=== PATIENT | male | born 1995 | race American Indian/Alaskan Native ===

== ENCOUNTER 2020-10-29 09:09 | Emergency (ER) | payer MEDICAID ==
[2020-10-29] MEDS ORDERED: Sodium Chloride 0.9% 1,000 ML IV ONE ×2 (09:43→12:04)
--- NOTE | 2020-10-29 09:45 | EDM.PDOC ---
ED HPI GENERAL MEDICAL PROBLEM - General Chief Complaint: Lower Extremity Injury/Pain Stated Complaint: INFECTION ON A TOE/ALCOHOL POISONING Time Seen by Provider: 10/29/20 09:45 Source of Information: Reports: Patient History Limitations: Reports: No Limitations - History of Present Illness INITIAL COMMENTS - FREE TEXT/NARRATIVE: 25 yo gentleman who presented to the ER today with concerns for hang over after a heavy bout of ETOH consumption. Reports that he drank heavily on the new night and apparently passed out. Has been feeling sick today. Had 4 episodes of non bilious, non bloody vomiting. No fever. Reports abdominal discomfort but denied any abdominal pain. Presented to the ER for further evaluation. Also complaining Painful swollen right great Toe that has been ongoing for the past few days. He is concerned that its infected. No fever. Denied any Trauma. Rates the pain as 10 Onset: Today Onset Date: 10/29/20 Onset Time: 07:00 Duration: Day(s): (started vomiting today) Associated Symptoms: Reports: Loss of Appetite, Malaise, Nausea/Vomiting, Weakness - Related Data Allergies Allergy/AdvReac Type Severity Reaction Status Date / Time amoxicillin Allergy Cannot Verified 05/10/19 19:03 Remember Home Meds: Home Meds Omeprazole 20 mg PO DAILY 05/10/19 [History] Sulfamethoxazole/Trimethoprim [Bactrim Ds Tablet] 1 each PO BID #14 tablet 10/29/20 [Rx] chlordiazePOXIDE [Librium] 25 mg PO TID PRN #15 cap 10/29/20 [Rx] Past Medical History Respiratory History: Reports: Asthma Gastrointestinal History: Reports: GERD Psychiatric History: Reports: Anxiety, Panic Attack - Past Surgical History Musculoskeletal Surgical History: Reports: ORIF Social & Family History - Family History Family Medical History: No Pertinent Family History - Living Situation & Occupation Occupation: Employed (He states he works part-time at a [employer]) Review of Systems - Review of Systems Review Of Systems: See Below Constitutional: Reports: Weakness Eyes: Reports: No Symptoms Ears: Reports: No Symptoms Nose: Reports: No Symptoms Mouth/Throat: Reports: No Symptoms Respiratory: Reports: No Symptoms Cardiovascular: Reports: No Symptoms GI/Abdominal: Reports: Abdominal Pain, Decreased Appetite, Nausea, Vomiting Genitourinary: Reports: No Symptoms Musculoskeletal: Reports: No Symptoms Skin: Reports: No Symptoms Neurological: Reports: No Symptoms Psychiatric: Reports: No Symptoms ED EXAM, GENERAL - Physical Exam Exam: See Below Exam Limited By: No Limitations General Appearance: Alert, WD/WN, No Apparent Distress Eye Exam: Bilateral Eye: EOMI, PERRL Ears: Normal External Exam, Normal Canal, Hearing Grossly Normal, Normal TMs Ear Exam: Bilateral Ear: Auricle Normal, Canal Normal, TM normal Nose: Normal Inspection, Normal Mucosa, No Blood Throat/Mouth: Normal Inspection, Normal Lips, Normal Teeth Head: Atraumatic, Normocephalic Neck: Normal Inspection, Supple, Non-Tender, Full Range of Motion Respiratory/Chest: No Respiratory Distress, Lungs Clear, Normal Breath Sounds, No Accessory Muscle Use Cardiovascular: Normal Peripheral Pulses, Regular Rate, Rhythm, No Edema, No JVD, No Murmur GI/Abdominal: Normal Bowel Sounds, Soft, Non-Tender, No Organomegaly Back Exam: Normal Inspection, Full Range of Motion Extremities: Normal Inspection, Normal Range of Motion, Non-Tender, No Pedal Edema, Normal Capillary Refill, Redness, Other (Right great Toe -- swollen, tender, erythematous consistent with cellulitis) Neurological: Alert, Oriented, CN II-XII Intact, Normal Cognition, Normal Gait, Normal Reflexes, No Motor/Sensory Deficits Psychiatric: Normal Affect, Normal Mood Skin Exam: Warm, Intact, Normal Color Course - Vital Signs Last Recorded V/S: Last Vital Signs Temp 36.5 C 10/29/20 09:20 Pulse 74 10/29/20 09:20 Resp 16 10/29/20 09:20 BP 113/68 10/29/20 09:20 Pulse Ox 98 10/29/20 09:20 - Orders/Labs/Meds Labs: Laboratory Tests 10/29/20 10/29/20 10/29/20 Range/Units 09:50 09:50 09:50 WBC 6.9 (3.2-10.1) x10-3/uL RBC 4.64 (3.90-5.90) x10(6)uL Hgb 14.0 (12.9-17.7) g/dL Hct 42.7 (38.3-50.1) % MCV 92.2 (80.8-98.7) fL MCH 30.2 (27.0-33.3) pg MCHC 32.7 (28.7-35.3) g/dL RDW 12.9 (12.4-15.0) % Plt Count 275 (117-477) x10(3)uL MPV 8.2 (6.7-11.0) fL Neut % (Auto) 62.2 (40.3-71.8) % Lymph % (Auto) 29.4 (15.8-45.3) % George % (Auto) 7.1 (5.5-15.2) % Eos % (Auto) 1.0 (0.1-6.8) % Baso % (Auto) 0.3 (0.3-3.8) % Neut # (Auto) 4.3 (1.7-6.9) x10-3/uL Lymph # (Auto) 2.0 (0.5-4.5) x10-3/uL George # (Auto) 0.5 (0.0-1.2) x10-3/uL Eos # (Auto) 0.1 (0.0-0.6) x10-3/uL Baso # (Auto) 0.0 (0.0-0.3) x10-3/uL Sodium 140 (135-145) mmol/L Potassium 3.4 L (3.5-5.3) mmol/L Chloride 100 (100-110) mmol/L Carbon Dioxide 26 (21-32) mmol/L BUN 8 (7-18) mg/dL Creatinine 1.0 (0.70-1.30) mg/dL Est Cr Clr Drug Dosing TNP Estimated GFR (MDRD) > 60 (>60) BUN/Creatinine Ratio 8.0 L (9-20) Glucose 101 (80-116) mg/dL Calcium 8.8 (8.6-10.2) mg/dL Magnesium (1.8-2.5) mg/dL Total Bilirubin 0.5 (0.1-1.3) mg/dL AST 53 H (5-25) IU/L ALT 80 H (12-36) U/L Alkaline Phosphatase 93 (56-112) IU/L Total Protein 8.0 (6.0-8.0) g/dL Albumin 4.3 (3.5-5.2) g/dL Globulin 3.7 g/dL Albumin/Globulin Ratio 1.2 Lipase 99 (73-393) U/L Ethyl Alcohol 0.03 (<0.03) % 10/29/20 Range/Units 09:50 WBC (3.2-10.1) x10-3/uL RBC (3.90-5.90) x10(6)uL Hgb (12.9-17.7) g/dL Hct (38.3-50.1) % MCV (80.8-98.7) fL MCH (27.0-33.3) pg MCHC (28.7-35.3) g/dL RDW (12.4-15.0) % Plt Count (117-477) x10(3)uL MPV (6.7-11.0) fL Neut % (Auto) (40.3-71.8) % Lymph % (Auto) (15.8-45.3) % George % (Auto) (5.5-15.2) % Eos % (Auto) (0.1-6.8) % Baso % (Auto) (0.3-3.8) % Neut # (Auto) (1.7-6.9) x10-3/uL Lymph # (Auto) (0.5-4.5) x10-3/uL George # (Auto) (0.0-1.2) x10-3/uL Eos # (Auto) (0.0-0.6) x10-3/uL Baso # (Auto) (0.0-0.3) x10-3/uL Sodium (135-145) mmol/L Potassium (3.5-5.3) mmol/L Chloride (100-110) mmol/L Carbon Dioxide (21-32) mmol/L BUN (7-18) mg/dL Creatinine (0.70-1.30) mg/dL Est Cr Clr Drug Dosing Estimated GFR (MDRD) (>60) BUN/Creatinine Ratio (9-20) Glucose (80-116) mg/dL Calcium (8.6-10.2) mg/dL Magnesium 1.7 L (1.8-2.5) mg/dL Total Bilirubin (0.1-1.3) mg/dL AST (5-25) IU/L ALT (12-36) U/L Alkaline Phosphatase (56-112) IU/L Total Protein (6.0-8.0) g/dL Albumin (3.5-5.2) g/dL Globulin g/dL Albumin/Globulin Ratio Lipase (73-393) U/L Ethyl Alcohol (<0.03) % Meds: Medications Discontinued Medications Generic Name Dose Route Start Last Admin Trade Name Freq PRN Reason Stop Dose Admin Sodium Chloride 1,000 mls @ 1,000 mls/hr 10/29/20 09:43 10/29/20 10:27 Normal Saline IV 10/29/20 10:42 1,000 mls/hr .BOLUS ONE Administration Magnesium Sulfate 2 gm/ 104 mls @ 100 mls/hr 10/29/20 11:06 10/29/20 11:41 Dextrose/Water IV 10/29/20 12:08 Not Given ONETIME ONE Magnesium Sulfate Confirm 10/29/20 11:11 10/29/20 12:12 Magnesium Sulfate In Water Premix Administered 10/29/20 11:12 Not Given Dose 2 gm in 50 mls @ as directed .ROUTE .STK-MED ONE Magnesium Sulfate Confirm 10/29/20 11:28 10/29/20 12:12 Magnesium Sulfate In Water Premix Administered 10/29/20 11:29 Not Given Dose 2 gm in 50 mls @ as directed .ROUTE .STK-MED ONE Magnesium Sulfate 2 gm in 50 mls @ 25 mls/hr 10/29/20 11:37 10/29/20 11:42 Magnesium Sulfate In Water Premix IV 10/29/20 13:36 25 mls/hr ONETIME ONE Administration Sodium Chloride 1,000 mls @ 1,000 mls/hr 10/29/20 12:04 10/29/20 12:12 Normal Saline IV 10/29/20 13:03 1,000 mls/hr .BOLUS ONE Administration Lorazepam 1 mg 10/29/20 10:51 10/29/20 10:57 Ativan IVPUSH 10/29/20 10:52 1 mg ONETIME ONE Administration Lorazepam 1 mg 10/29/20 12:04 10/29/20 12:12 Ativan IVPUSH 10/29/20 12:05 1 mg ONETIME ONE Administration Ondansetron HCl 8 mg 10/29/20 10:42 10/29/20 10:50 Zofran IVPUSH 10/29/20 10:43 8 mg ONETIME ONE Administration Potassium Chloride 40 meq 10/29/20 11:05 10/29/20 11:16 Klor-Con M20 PO 10/29/20 11:06 40 meq ONETIME ONE Administration Departure - Departure Time of Disposition: 13:39 Disposition: Home, Self-Care 01 Condition: Good Clinical Impression: Alcohol withdrawal Qualifiers: Complication of substance-induced condition: uncomplicated Qualified Code(s): F 10.230 - Alcohol dependence with withdrawal, uncomplicated - Discharge Information Prescriptions: Sulfamethoxazole/Trimethoprim [Bactrim Ds Tablet] 1 each PO BID #14 tablet chlordiazePOXIDE [Librium] 25 mg PO TID PRN #15 cap PRN Reason: Anxiety Instructions: Cellulitis, Adult, Alcohol Withdrawal Syndrome, [id number] Referrals: PCP,None [Primary Care Provider] - Forms: ED Department Discharge Additional Instructions: Follow with PCP ETOH cessation Stay hydrated Return if symptoms worsen Call your Physician or Return to Emergency Department if: * Your condition worsens in any way. * You develop fever greater than 100.4. * You have vomitting that does not stop with medications. * You have pain that is not controlled with medications. Sepsis Event Note (ED) - Evaluation Sepsis Screening Result: No Definite Risk - Focused Exam Vital Signs: Vital Signs Temp Pulse Resp BP Pulse Ox 10/29/20 09:20 36.5 C 74 16 113/68 98 - Problem List & Annotations (1) Alcohol withdrawal SNOMED Code(s): 515150183 Code(s): F10.239 - ALCOHOL DEPENDENCE WITH WITHDRAWAL, UNSPECIFIED Status: Acute Current Visit: Yes Qualifiers: Complication of substance-induced condition: uncomplicated Qualified Code(s): F10.230 - Alcohol dependence with withdrawal, uncomplicated - Problem List Review Problem List Initiated/Reviewed/Updated: Yes
[2020-10-29] MEDS ORDERED: Ondansetron 4 MG/2 ML SDV IVPUSH ONE (10:42)
[2020-10-29] MEDS ORDERED: LORazepam 2 MG/ML SDV IVPUSH ONE ×2 (10:51→12:04)
[2020-10-29] MEDS ORDERED: Potassium Chloride 20 MEQ Tab.ER PO ONE (11:05)
[2020-10-29] MEDS ORDERED: Magnesium Sulfate/Water 2 GM/50 ML BAG ONE ×2 (11:11→11:28)
[2020-10-29] MEDS ORDERED: Magnesium Sulfate/Water 2 GM/50 ML BAG IV ONE (11:37)
== END 2020-10-29 13:28 | disposition home or self-care (01) ==
LOC: FB.ED 09:09
DX: F10.230 Alcohol dependence with withdrawal, uncomplicated (principal); K21.9 Gastro-esophageal reflux disease without esophagitis; J45.909 Unspecified asthma, uncomplicated; Z88.0 Allergy status to penicillin; Z79.899 Other long term (current) drug therapy
CPT/HCPCS: 36415; 80053; 80307; 83690; 83735; 85025; 96365; 96366; 96375; 96376; 99284; 99284-25; A9270-GY; J2060; J2405; J3475; J7030

== ENCOUNTER 2022-07-15 15:14 | Emergency (ER) | payer MEDICAID ==
[2022-07-15] MEDS ORDERED: Ondansetron 4 MG Tab.DIS ONE (15:29)
[2022-07-15] MEDS ORDERED: Ondansetron 4 MG Tab.DIS PO ONE (15:31)
[2022-07-15] MEDS ORDERED: Sodium Chloride 0.9% 1,000 ML IV ONE (15:35)
[2022-07-15] MEDS ORDERED: LORazepam 2 MG/ML SDV IVPUSH ONE (15:51)
[2022-07-15 15:54] LABS: ESTIMATED GFR 86 mL/min (>60)
== END 2022-07-15 17:15 | disposition home or self-care (01) ==
LOC: FB.ED 15:14
DX: R11.2 Nausea with vomiting, unspecified (principal); K21.9 Gastro-esophageal reflux disease without esophagitis; F41.9 Anxiety disorder, unspecified; F10.10 Alcohol abuse, uncomplicated; Z88.1 Allergy status to other antibiotic agents; Z79.899 Other long term (current) drug therapy
CPT/HCPCS: 36415; 80053; 83690; 85025; 86140; 96361; 96374; 99284; J2060; J7030; Q0162

== ENCOUNTER 2022-07-30 08:56 | Emergency (ER) | payer SELFPAY | END 2022-07-30 11:22 | disposition home or self-care (01) | LOC: FB.ED 08:56 | DX: S93.401A Sprain of unspecified ligament of right ankle, initial encounter (principal); X50.1XXA Overexertion from prolonged static or awkward postures, initial encounter | CPT/HCPCS: 96372; 99000; 99283 ==

== ENCOUNTER 2022-08-05 21:12 | Emergency (ER) | payer SELFPAY ==
[2022-08-05] MEDS ORDERED: LORazepam 1 MG Tab PO ONE (22:27)
== END 2022-08-06 00:02 | disposition home or self-care (01) ==
LOC: FB.ED 21:12
DX: F41.8 Other specified anxiety disorders (principal); Z88.0 Allergy status to penicillin; Z79.899 Other long term (current) drug therapy; Z86.16 Personal history of COVID-19
CPT/HCPCS: 93005; 99283; A9270

== ENCOUNTER 2022-10-14 18:05 | Emergency (ER) | payer MEDICAID ==
[2022-10-14 18:50] LABS: ESTIMATED GFR 106 mL/min (>60)
[2022-10-14 19:27] LABS: CORONAVIRUS COVID-19 NAA NEGATIVE (NEGATIVE)
== END 2022-10-14 19:40 | disposition designated cancer center or children's hospital (05) ==
LOC: FB.ED 18:05
DX: B34.9 Viral infection, unspecified (principal); F41.9 Anxiety disorder, unspecified; F32.A Depression, unspecified; J45.909 Unspecified asthma, uncomplicated; K21.9 Gastro-esophageal reflux disease without esophagitis; Z88.0 Allergy status to penicillin; Z79.899 Other long term (current) drug therapy; Z20.822 Contact with and (suspected) exposure to COVID-19
CPT/HCPCS: 0241U; 36415; 80053; 80307; 85025; 86140; 99284